=== PATIENT | female | born 2005 | race Caucasian/White ===

== ENCOUNTER → 2023-09-08 14:52 | Outpatient (REF) | payer OTHER, SELFPAY | LOC: DHCBS MAIN 14:52 | PROVIDERS: ATTENDING PHYSICIAN Internal Medicine Cardiovascular Disease; FAMILY PHYSICIAN Internal Medicine | DX: R42 Dizziness and giddiness (principal); R00.2 Palpitations | CPT/HCPCS: 93306 ==

== ENCOUNTER → 2023-09-15 12:25 | Outpatient (REF) | payer OTHER, SELFPAY | LOC: RAD 12:25 | PROVIDERS: ATTENDING PHYSICIAN Nurse Practitioner Family | DX: M25.572 Pain in left ankle and joints of left foot (principal) | CPT/HCPCS: 73610; 73630 ==

== ENCOUNTER 2023-10-16 16:01 | Emergency (ER) | payer OTHER, SELFPAY ==
[2023-10-16 16:12] VITALS: BP 120/84
--- NOTE | 2023-10-16 17:24 | ED.MUSCINJ ---
HPI-Injury
General
Chief Complaint: Musculo-Skeletal Complaint
Source: patient
Exam Limitations: none
Time Seen by Provider: 10/16/23 17:01
Nursing documentation reviewed up to this point in time: agreed with
Travel History
Have you had any contact with someone who has COVID-19?: No
Do you have any symptoms of coronavirus? Fever > 100 degrees, chills, cough, shortness of breath, sore throat, loss of taste or smell, muscle aches, or headache?: No
History of Present Illness-Injury
Is this injury a work related problem?: No
Is pt an associate of [facility]?: No
Initial Injury comments:
18-year-old female with pain in the right third and fourth digit slammed in a door 3 days ago took Motrin initially she has full range of motion no open wounds, no subungual hematoma
Past History
Past History
ED Past Medical History: Psychiatric (ADHD)
ED Past Surgical History: None
Social History
Tobacco: Non-smoker
Alcohol: None
Drug: None
Personal: Single
Living: with roommate (Student)
Employment: Student
Review of Systems
Review of Systems
All Other Systems: Not applicable
Musculoskeletal: Reports joint pain
Phy Exam
Physical Exam
Physical Exam:
Physical Exam
General: no apparent distress, not acutely ill
Lungs: no acute respiratory distress.
Neuro: alert and oriented
Skin: no rash
Psychiatric: well kept. interactive and cooperative
Extremities: Minimal pain with distal third and fourth digit on the right pulp space nonswollen no subungual hematoma normal cap refill no skin defect
Injury Course
Orders/Labs/Results
Orders:
Orders
10/16/23 16:10
CR Hand - Right Min 3 Views Urgent
Reason For Exam: slammed figners in door
MDM/Problems Addressed
Differential Diagnosis Includes:
Contusion fracture subungual hematoma no signs of ligamentous injury
MDM/Problems Addressed:
Finger pain
*Radiology
Radiology exam reviewed: radiology read reviewed
*Pulse Oximetry
Patient hypoxic: no
*Critical Care Note
Total Time (30-74mins, 75-104mins- exclusive of procedures): Not Applicable
Update Note
Update Note:
X-ray noted, will betsey tape, start Motrin
ED Attending Note
-
Portions of this chart may have been created with voice recognition software.� Occasional wrong word or��sound alike� substitutions may have occurred due to the inherent limitations of voice recognition software.
Discharge Plan
Departure
Patient Disposition: Home (Routine Discharge)
Date of Disposition: 10/16/23
Time of Disposition: 17:27
Patient with high blood pressure during this ER visit?: No
Discharge Problem:
Contusion of finger
Instructions: Contusion (DC), Ibuprofen
Prescriptions:
New
ibuprofen 600 mg tablet
600 mg PO Q8H PRN (Reason: Pain) Qty: 20 0RF
Referrals:
PRIVATE,PHYSICIAN [Family Provider] -
Interventions
Interventions:
*Risk Screen - Suicide Last Done: 10/16/23 17:10
*General Assessment Last Done: 10/16/23 17:10
*Neglect/Abuse Screening Last Done: 10/16/23 17:10
ED-Musculoskeletal Assessment Last Done: 10/16/23 17:11
== END 2023-10-16 17:51 | disposition home or self-care (01) ==
LOC: EMR 16:01
PROVIDERS: EMERGENCY PHYSICIAN Emergency Medicine
DX: S60.031A Contusion of right middle finger without damage to nail, initial encounter (principal); S60.041A Contusion of right ring finger without damage to nail, initial encounter; W23.0XXA Caught, crushed, jammed, or pinched between moving objects, initial encounter; F90.9 Attention-deficit hyperactivity disorder, unspecified type
CPT/HCPCS: 99283; 73130

== ENCOUNTER 2025-04-26 18:03 | Emergency (ER) | payer OTHER, SELFPAY ==
[2025-04-26 18:06] VITALS: BP 145/106
[2025-04-26 18:31] LABS: Urine Character Cloudy (Clear)
[2025-04-26 18:45] LABS: HCG, Serum Qualitative Screen Negative
[2025-04-26 18:50] LABS: ALT (SGPT) 16 U/L (0-35); AST (SGOT) 22 U/L (14-36); Albumin 4.4 g/dl (3.5-5.0); Alkaline Phosphatase 73 U/L (38-126); Blood Urea Nitrogen 15 mg/dl (7-17); Calcium 9.5 mg/dl (8.4-10.2); Carbon Dioxide 25 mmol/L (22-30); Chloride 110 mmol/L (98-107); Glucose 97 mg/dl (70-99); Potassium 3.9 mmol/L (3.5-5.1); Sodium 143 mmol/L (135-145); Total Protein 7.9 g/dl (6.3-8.2); eGFR > 60.00
[2025-04-26 18:51] LABS: Hematocrit 41.3 % (37.0-47.0); Hemoglobin 14.1 g/dL (12.0-16.0); Mean Corp Hgb Conc. 34.1 g/dL (33.0-37.0); Mean Corpuscular Volume 91.0 fL (81.0-99.0); Nucleated Red Blood Cells % 0 %; Platelet Count 359 10^3/uL (130-400); Red Cell Dist. Width 13.1 % (11.5-14.5)
[2025-04-26 19:10] LABS: Urine Red Blood Cell >100 /HPF (0-2)
[2025-04-26] MEDS: ZOFRAN 4 MG IV (19:10)
[2025-04-26] MEDS: TORADOL 15 MG IV (19:11)
[2025-04-26] MEDS: NSS 1000 IV (19:11)
[2025-04-26 19:12] VITALS: BMI 30.8
[2025-04-26 19:17] VITALS: BP 143/97
[2025-04-26] MEDS: DILAUDID 0.5 MG IV (19:43)
--- NOTE | 2025-04-26 20:03 | ED.GENMED ---
History of Present Illness
General
Chief Complaint: Back Pain
Source: patient
Exam Limitations: none
Time Seen by Provider: 04/26/25 18:18
Nursing documentation reviewed up to this point in time: agreed with
History of Present Illness
History of Present Illness:
Patient is a 19-year-old female who presents to the emergency department for acute onset left flank pain occurring about an hour prior to arrival. Patient states she was lying in bed playing video games and she had a sudden, sharp pain in her left
lower back. She denies any radiation of pain around to her abdomen. Since initial onset, she reports constant dull pain however has had waves of sharper, more intense discomfort associated with episodes of nausea and vomiting.
Patient denies any fever or chills. She denies any diarrhea or constipation. No urinary symptoms including hesitancy, dysuria, or visible hematuria. She denies any chest pain or shortness of breath.
She states that her last menstrual period was a few weeks ago. No past history of kidney stones.
Past History
Past History
ED Past Medical History: Psychiatric (ADHD)
ED Past Surgical History: None
Social History
Tobacco: Non-smoker
Alcohol: None
Drug: None
Personal: Single
Living: with roommate (Student)
Employment: Student
Review of Systems
Review of Systems
Allergies reviewed?: Yes
All Other Systems: ROS reviewed and negative except as documented in HPI and ROS
Phy Exam
Physical Exam
Physical Exam:
Vitals: Hypertensive, otherwise vital signs stable. Afebrile
General: Patient is uncomfortable appearing due to pain. Nontoxic
Skin: Warm and dry, no rashes or lesions
Head: Normocephalic, atraumatic
Eyes: Sclera nonicteric.
Throat: Protecting airway
Neck: Normal ROM, no cervical spine tenderness, no meningismus
Cardiac: Regular rate and rhythm, no murmurs.
Pulm: Normal respiratory effort. Lungs clear bilaterally
Abdomen: Abdomen soft. No reproducible tenderness.
Back: No CVA tenderness or reproducible pain in left flank. No ecchymoses or rash.
Extremities: No evidence of cyanosis or edema
Neuro: AAOx3. Grossly intact.
Psychiatric: Normal affect.
Course
Orders/Labs/Results
Orders:
Orders
04/26/25 18:09
Complete Blood Count/With Diff Urgent
Urinalysis Reflex To Culture Urgent
Date Specimen was Collected: 04/26/25
Time Specimen was Collected: 18:10
Urine Microscopic Reflex Cult Urgent
04/26/25 18:10
Test Result ONCE
04/26/25 18:14
Comprehensive Metabolic Panel Urgent
HCG, Serum Qualitative Screen Urgent
Comment: Notify provider if positive test present
04/26/25 18:28
Abdomen/Pelvis wo Contrast CT [CT Abd/pelvis Wo Iv Cont] Urgent
Comment:
Reason For Exam: Left flank pain
0.9% Sodium Chloride 1000 ml [Nss] 1,000 ml IV BOLUS
Ketorolac [Toradol] 15 mg IV NOW STA
Ondansetron Injectable [Zofran] 4 mg IV NOW STA
04/26/25 19:37
HYDROmorphone [Dilaudid] 0.5 mg IV NOW STA
04/26/25 21:00
Tamsulosin [Flomax] 0.4 mg PO NOW STA
Abnormal Lab Results
04/26/25 04/26/25
18:09 18:14
WBC 13.4 H 10^3/uL
(4.8-10.8)
MCH 31.1 H pg
(27.0-31.0)
Absolute Lymphs (auto) 6.6 H 10^3/uL
(1.2-3.4)
Absolute Monos (auto) 0.9 H 10^3/uL
(0.1-0.6)
Chloride 110 H mmol/L
(98-107)
Ur Occult Blood Reflex 4+ A
(Negative)
Urine RBC >100 A /HPF
(0-2)
Urine Albumin (Reflex) 2+ A
(Neg - Trace)
04/26/25 18:09
04/26/25 18:14
Vital Signs
Initial and Last Documented VS:
Initial Vital Signs
Temp Pulse Resp BP Pulse Ox
98.5 F 93 16 145/106 97
04/26/25 18:06 04/26/25 18:06 04/26/25 18:06 04/26/25 18:06 04/26/25 18:06
Last Documented Vital Signs
Temp Pulse Resp BP Pulse Ox
98.9 F 83 18 143/97 97
04/26/25 19:17 04/26/25 19:17 04/26/25 19:17 04/26/25 19:17 04/26/25 20:04
MDM/Problems Addressed
Differential Diagnosis Includes:
Not limited to: Renal colic, pyelonephritis, UTI, muscle strain/spasm, etc.
MDM/Problems Addressed:
19-year-old female presenting with acute onset left flank pain 1 hour prior to arrival associated with nausea/vomiting. No fever, dysuria/ hematuria, or changes in bowel habits. No abnormal vaginal bleeding. Patient hypertensive on arrival with
otherwise stable vital signs. She is afebrile. On exam�patient moderately comfortably to pain however nontoxic-appearing. Abdomen benign without any CVA tenderness or rash. Cardio/pulmonary assessment unremarkable.
Differential as above. Clinical picture highly suspicious for renal colic. ED plan: Labs, UA, noncontrast CT scan abdomen/pelvis. Will treat pain, give IV fluids and reassess
Update: CBC with leukocytosis of 13.4 without left shift. Chemistry without acute findings. hCG negative. Urine with greater than 100 RBCs however no indication of infection. CT scan shows 2 mm stone in left proximal ureter with mild left hydro.
I did reassess patient at bedside whose pain is under better control following IV pain medication in ED. She remains hemodynamically stable. Given patients pain is well-controlled at this time with no evidence of associated infectious process�feel
appropriate for discharge home for trial of passage of stone outpatient. Patient is comfortable plan. Will start patient on Flomax and send prescription for pain management. Advise urology follow-up outpatient. Very strict return precautions
discussed including any signs of infection.
Chronic conditions affecting care:
N/A
Acute Exacerbation and/or Progression of Chronic Illness:
N/A
*Radiology
Radiology exam reviewed: preliminary read by ED provider (Obstructing calculus of proximal ureter) and radiology read reviewed
*Pulse Oximetry
SaO2: 97
Oxygen Mode of Delivery: Room air
Patient hypoxic: no
*EKG
Interpreted by ED Provider?: NA
*Critical Care Note
Total Time (30-74mins, 75-104mins- exclusive of procedures): Not Applicable
ED Attending Note
-
Portions of this chart may have been created with voice recognition software.� Occasional wrong word or��sound alike� substitutions may have occurred due to the inherent limitations of voice recognition software.
Discharge Plan
Departure
Patient Disposition: Home (Routine Discharge)
Date of Disposition: 04/26/25
Time of Disposition: 20:54
Patient with high blood pressure during this ER visit?: Yes
Discharge Problem:
Calculus of proximal left ureter
Instructions: How to Strain Your Urine, Kidney stones in adults - ED (DC), BLOOD PRESSURE
Prescriptions:
New
tamsulosin [Flomax] 0.4 mg capsule
0.4 mg PO DAILY Qty: 14 0RF
oxycodone 5 mg tablet
5 mg PO Q8H PRN (Reason: Pain) Qty: 7 0RF
No Action
ibuprofen 600 mg tablet
600 mg PO Q8H PRN (Reason: Pain) Qty: 20 0RF
Referrals:
Rigo Houser MD [Active, Urology] - Next open appointment
Activity Restrictions/Additional Instructions:
RETURN TO THE EMERGENCY DEPARTMENT WITH ANY INTRACTABLE PAIN, FEVER/CHILLS, INTRACTABLE NAUSEA/VOMITING, DIFFICULTIES URINATING, SIGNIFICANT WEAKNESS, WORSENING OF CURRENT SYMPTOMS, OR ANY OTHER CONCERNS
- As discussed�the CT scan showed a 2 mm stone in your proximal left ureter.
- You should take 600 mg of ibuprofen every 6-8 hours at home. You can take Tylenol, as well. I have sent a prescription for a few oxycodone which you can take for intractable pain. This may cause drowsiness and you should not take prior to
driving.
- Is important to stay well-hydrated. Take Flomax daily until you passed the stone. Please continue to strain your urine.
- Follow-up with urology for further evaluation/management to ensure that the stone passes.
Monitor your symptoms closely and return to the emergency department with any acute worsening/new symptoms or any other concerns
Interventions
Interventions:
*Risk Screen - Suicide Last Done: 04/26/25 18:06
*General Assessment Last Done: 04/26/25 19:14
*Neglect/Abuse Screening Last Done: 04/26/25 18:06
*ED- Fall Risk Assessment Last Done: 04/26/25 19:14
*ED COVID-19 Vaccine History Last Done: 04/26/25 19:14
*Nursing Disposition Last Done: 04/26/25 21:11
ED-Musculoskeletal Assessment Last Done: 04/26/25 19:15
Discharge Date and Time
Discharge Date/Time: 04/26/25 21:13
Print Language: ROMANIAN
[2025-04-26] MEDS: FLOMAX 0.4 MG PO (21:05)
== END 2025-04-26 21:13 | disposition home or self-care (01) ==
LOC: EMR 18:03
PROVIDERS: EMERGENCY PHYSICIAN Emergency Medicine
DX: N13.2 Hydronephrosis with renal and ureteral calculous obstruction (principal); M54.50 Low back pain, unspecified
CPT/HCPCS: 96374; 96375; 96361; 99284; 74176; 80053; 81003; 81015; 84703; 85025